=== PATIENT | male | born 1975 | race Caucasian/White ===

== ENCOUNTER → 2017-05-05 12:19 | Emergency (ER) | payer MEDICARE ==
[~2017-05-05 12:19] MED LIST: NS 0.9% 1000 ML* 2,000 ML IV ONE
[2017-05-05 14:10] LABS: Hematocrit 46 % (42-52); Hemoglobin 15.7 g/dl (14.0-18.0); Mean Corpuscular HGB Conc 34 g/dl (31-36); Mean Corpuscular Hemoglobin 30 pg (27-31); Mean Corpuscular Volume 87 fL (80-94); Mean Platelet Volume 9 um3 (7.4-10.4); Red Cell Distribution Width 13 % (10.5-15); White Blood Count 11.6 10^3/ul (3.5-10.8)
[2017-05-05 14:14] LABS: Urine Bilirubin Negative (Negative); Urine Glucose Negative (Negative); Urine Nitrite Negative (Negative)
[2017-05-05 14:23] LABS: Albumin 4.4 g/dL (3.2-5.2); BUN/Creatinine Ratio 13.8 (8-20); C Reactive Protein 14.52 mg/L (< 5.00); Calcium 9.5 mg/dL (8.6-10.3); EGFR African American 96.4 (>60); EGFR Non-African American 74.9 (>60); Globulin 2.6 g/dL (2-4); Potassium 4.1 mmol/L (3.5-5.0); Total Bilirubin 1.1 mg/dL (0.2-1.0)
--- NOTE | 2017-05-05 14:44 | RAD ---
Indication: Left flank pain. CT of the abdomen and pelvis was performed without IV or oral contrast administration. Coronal and sagittal reconstructed images were obtained. Lung bases demonstrate no pleural fluid, nodules or masses. Heart is of normal size without evidence of pericardial effusion. Liver is normal in size. No focal lesions or intrahepatic duct dilatation is noted. The gallbladder demonstrates no calcified gallstones. No pericholecystic fluid or wall thickening is identified. The pancreas demonstrates no mass or pancreatic duct dilatation. The spleen is normal in size. The common duct is not dilated. No adrenal lesions are noted. The kidneys demonstrate nonobstructing calculi in both kidneys. No hydronephrosis or hydroureter is noted. Aorta and inferior vena cava demonstrates no evidence of aneurysmal dilatation. No retroperitoneal adenopathy is noted. Small bowel demonstrates no abnormal dilatation. The colon is filled with stool. The appendix is visualized and is unremarkable. Urinary bladder is unremarkable. Prostate and seminal vesicles are unremarkable. The visualized bony structures are unremarkable. IMPRESSION: There are multiple small nonobstructing calculi in both kidneys. No hydronephrosis is noted in either kidney. No obstructive uropathy is noted.
[2017-05-05 15:21] VITALS: BP 128/75
--- NOTE | 2017-05-05 18:23 | ED ---
I, Oh,Aris, scribed for Jorge Alberto Obregon MD on 05/05/17 at 1300 . GI/ HPI - HPI Summary HPI Summary: This 42 y/o male presents to ED for left flank pain since this morning. No radiation of pain to groin area. Negative recent trauma. Ambulation makes pain worse. Deep breath does not make pain worse. PMHx includes kidney stone that was spontaneously passed as well as chronic back pain secondary to spinal injury while in . Chronic back pain is controlled with morphine. He is not on blood thinner. Pt reports that pain is similar to his prior kidney stone a year ago. - History of Current Complaint Chief Complaint: EDAbdPain Time Seen by Provider: 05/05/17 12:54 Stated Complaint: HIGH BP Hx Obtained From: Patient, Medical Records Onset/Duration: Started Hours Ago, Still Present Timing: Constant Pain Intensity: 8 Location of Pain: Flank - left Pain Characteristics: Sharp Associated Signs and Symptoms: Positive: Back Pain Aggravating Factor(s): Movement - ambulation Alleviating Factor(s): Nothing - Allergy/Home Medications Allergies/Adverse Reactions: Allergies Allergy/AdvReac Type Severity Reaction Status Date / Time Gabapentin Allergy Pain Verified 05/03/17 13:00 Bee Stings Allergy Severe Anaphylaxis Uncoded 10/15/16 13:40 PMH/Surg Hx/FS Hx/Imm Hx Endocrine/Hematology History: Denies: Hx Diabetes Cardiovascular History: Reports: Hx Hypercholesterolemia Denies: Hx Hypertension, Hx Pacemaker/ICD Comment Only: Other Cardiovascular Problems/Disorders - IN ED 10/09/16 rapid heart rate. [employer] 10/17/16 for Echo Respiratory History: Reports: Other Respiratory Problems/Disorders - History of apnea but patient refuses treatment. Denies: Hx Asthma GI History: Reports: Hx Gastroesophageal Reflux Disease, Hx Ulcer Musculoskeletal History: Reports: Hx Back Problems Denies: Hx Scoliosis Sensory History: Reports: Hx Contacts or Glasses - glasses, Hx Hearing Problem - Hearing Loss Denies: Hx Hearing Aid Opthamlomology History: Reports: Hx Contacts or Glasses - glasses Neurological History: Reports: Other Neuro Impairments/Disorders [facility], [facility] Denies: Hx Headaches Psychiatric History: Reports: Hx Depression Denies: Hx Panic Disorder - Surgical History Surgery Procedure, Year, and Place: T&A 1985. Endoscopy 1999, 2005 Infectious Disease History: No Infectious Disease History: Denies: Hx Clostridium Difficile, Hx Hepatitis, Hx Human Immunodeficiency Virus (HIV), Hx of Known/Suspected MRSA, Hx Shingles, Hx Tuberculosis, Hx Known/ Suspected VRE, Hx Known/Suspected VRSA, History Other Infectious Disease, Traveled Outside the [place] in Last 30 Days - Family History Known Family History: Positive: Other Family History: Father -- gastric ulcers. Positive for Graves dz - Social History Alcohol Use: Rare Alcohol Amount: wine Hx Substance Use: No Substance Use Type: Reports: None Hx Tobacco Use: No Smoking Status (MU): Never Smoked Tobacco Have You Smoked in the Last Year: No Review of Systems Negative: Fever Positive: flank pain - left flank Positive: Other - chronic back pain All Other Systems Reviewed And Are Negative: Yes Physical Exam - Summary Physical Exam Summary: The patient is well-nourished in moderate acute distress. The skin is warm and diaphoretic. HEENT: The head is normocephalic and atraumatic. The pupils are equal and reactive. The conjunctivae are clear and without drainage. Nares are patent and without drainage. Mouth reveals moist mucous membranes and the throat is without erythema and exudate. The external ears are intact. Hearing aid in place. Neck is supple with full range of motion and non-tender. There are no carotid bruits. There is no neck vein distension. Respiratory: Chest is non-tender. Lungs are clear to auscultation and breath sounds are symmetrical and equal. Cardiovascular: Hear is regular rate and rhythm. There is no murmur or rub auscultated. There is no peripheral edema and pulses are symmetrical and equal. Abdomen: The abdomen is soft and non-tender. There are normal bowel sounds heard in all four quadrants and there is no organomegaly palpated. Positive left CVA tenderness. Positive left straight leg raise. Musculoskeletal: There is no back pain noted. Extremities are non-tender with full range of motion. There is good capillary refill. There is no peripheral edema or calf tenderness elicited. Paraspinal muscle spasm on left lumbar region Neurological: Patient is alert and oriented to person, place and time. The patient has symmetrical motor strength in all four extremities. Cranial nerves are grossly intact. Deep tendon reflexes are symmetrical and equal in all four extremities. Psychiatric: The patient has an appropriate affect and does not exhibit any anxiety or depression. Triage Information Reviewed: Yes Vital Signs On Initial Exam: Initial Vitals Temp Pulse Resp BP Pulse Ox 98.3 F 103 20 135/90 100 05/05/17 12:40 05/05/17 12:40 05/05/17 12:40 05/05/17 12:40 05/05/17 12:40 Vital Signs Reviewed: Yes Diagnostics - Vital Signs Vital Signs Temp Pulse Resp BP Pulse Ox 05/05/17 12:43 97.2 F 99 20 135/90 100 05/05/17 12:40 98.3 F 103 20 135/90 100 - Laboratory Lab Results: Lab Results 05/05/17 05/05/17 05/05/17 Range/Units 12:55 12:55 12:55 WBC 11.6 H (3.5-10.8) 10^3/ul RBC 5.30 (4.0-5.4) 10^6/ul Hgb 15.7 (14.0-18.0) g/dl Hct 46 (42-52) % MCV 87 (80-94) fL MCH 30 (27-31) pg MCHC 34 (31-36) g/dl RDW 13 (10.5-15) % Plt Count 185 (150-450) 10^3/ul MPV 9 (7.4-10.4) um3 Neut % (Auto) 66.7 (38-83) % Lymph % (Auto) 21.7 L (25-47) % Mcculloch % (Auto) 9.3 H (1-9) % Eos % (Auto) 1.8 (0-6) % Baso % (Auto) 0.5 (0-2) % Absolute Neuts (auto) 7.8 H (1.5-7.7) 10^3/ul Absolute Lymphs (auto) 2.5 (1.0-4.8) 10^3/ul Absolute Monos (auto) 1.1 H (0-0.8) 10^3/ul Absolute Eos (auto) 0.2 (0-0.6) 10^3/ul Absolute Basos (auto) 0.1 (0-0.2) 10^3/ul Absolute Nucleated RBC 0.02 10^3/ul Nucleated RBC % 0.2 Sodium 138 (133-145) mmol/L Potassium 4.1 (3.5-5.0) mmol/L Chloride 102 (101-111) mmol/L Carbon Dioxide 28 (22-32) mmol/L Anion Gap 8 (2-11) mmol/L BUN 15 (6-24) mg/dL Creatinine 1.09 (0.67-1.17) mg/dL Est GFR ( Amer) 96.4 (>60) Est GFR (Non-Af Amer) 74.9 (>60) BUN/Creatinine Ratio 13.8 (8-20) Glucose 94 (70-100) mg/dL Calcium 9.5 (8.6-10.3) mg/dL Total Bilirubin 1.10 H (0.2-1.0) mg/dL AST 16 (13-39) U/L ALT 8 (7-52) U/L Alkaline Phosphatase 52 (34-104) U/L C-Reactive Protein 14.52 H (< 5.00) mg/L Total Protein 7.0 (6.4-8.9) g/dL Albumin 4.4 (3.2-5.2) g/dL Globulin 2.6 (2-4) g/dL Albumin/Globulin Ratio 1.7 (1-3) Lipase 28 (11.0-82.0) U/L Urine Color Yellow Urine Appearance Clear Urine pH 6.0 (5-9) Ur Specific Samson 1.014 (1.010-1.030) Urine Protein Negative (Negative) Urine Ketones Negative (Negative) Urine Blood Negative (Negative) Urine Nitrate Negative (Negative) Urine Bilirubin Negative (Negative) Urine Urobilinogen Negative (Negative) Ur Leukocyte Esterase Negative (Negative) Urine Glucose Negative (Negative) Result Diagrams: 05/05/17 12:55 05/05/17 12:55 Lab Statement: Any lab studies that have been ordered have been reviewed, and results considered in the medical decision making process. - CT Ab/P CT Interpretation: Positive (See Comments) - There are multiple small nonobstructing calculi in both kidneys. No hydronephrosis is noted in either kidney. No obstructive uropathy is noted. CT Interpretation Completed By: Samaria RAMOS Course/Dx - Course Assessment/Plan: This 42 y/o male presents to ED for acute onset of left flank pain since this morning. Ambulation makes the pain worse. Pt states the pain is similar to his prior bout of kidney stone 1 year ago, which was spontaenously passed. CT imaging results indicates bilat nonobstructing kidney stones. Blood work is wnl except elevated CRP of 14.52 and WBC of 11.6. UA is benign. Pt is discharged with outpatient f/u with Dr. Nash, PCP. - Diagnoses Differential Diagnoses - Male: Renal Calculi, Ureteral Calculi, Other - thoraic strain sprain Provider Diagnoses: Left flank pain, Kidney stones, Back pain Discharge - Discharge Plan Condition: Stable Disposition: HOME Patient Education Materials: Kidney Stones (ED), Flank Pain (ED) Referrals: Deon Nash MD [Primary Care Provider] - 2 Days The documentation as recorded by the Kristian blackburn Soohyun accurately reflects the service I personally performed and the decisions made by me, Jorge Alberto Obregon MD.
== END | disposition home or self-care (01) ==
LOC: ED 12:19
DX: N20.0 Calculus of kidney (principal); R10.84 Generalized abdominal pain; M54.9 Dorsalgia, unspecified
CPT/HCPCS: 36415; 74176; 80053; 81003; 83690; 85025; 86140; 99283

== ENCOUNTER 2017-05-27 13:11 | Emergency (ER) | payer MEDICARE, OTHER ==
[2017-05-27 13:20] VITALS: BP 120/72
--- NOTE | 2017-05-27 13:53 | UC ---
Lower Extremity/Ankle HPI - HPI Summary HPI Summary: Patient presents to after inverting ankle during a fall this morning. He notes to pain in the lateral ankle and great toe pain. He is unaware of the exact mechanism of injury. He presents with swelling. Denies color changes, temperature changes, numbness or tingling. Pulses +2 intact bilaterally. No evidence of compartment syndrome. Pain is in proportion to injury and is discretely located over area of concern. Denies other complaints. - History of Current Complaint Chief Complaint: UCUpperExtremity Stated Complaint: ANKLE INJURY Time Seen by Provider: 05/27/17 13:22 Hx Obtained From: Patient Onset/Duration: Gradual Onset Severity Initially: Moderate Severity Currently: Moderate Pain Intensity: 5 Pain Scale Used: 0-10 Numeric Aggravating Factor(s): Standing, Ambulation Alleviating Factor(s): Rest Able to Bear Weight: Yes - Risk Factors Gout Risk Factors: Negative DVT Risk Factors: Negative Septic Arthritis Risk Factor: Negative - Allergies/Home Medications Allergies/Adverse Reactions: Allergies Allergy/AdvReac Type Severity Reaction Status Date / Time Gabapentin Allergy Pain Verified 05/27/17 13:20 Bee Stings Allergy Severe Anaphylaxis Uncoded 05/27/17 13:20 PMH/Surg Hx/FS Hx/Imm Hx Previously Healthy: Yes - Surgical History Surgical History: Yes Surgery Procedure, Year, and Place: T&A 1985. Endoscopy 2005 - Family History Known Family History: Positive: None, Other Family History: Father -- gastric ulcers. Positive for Graves dz - Social History Occupation: Employed Full-time Lives: With Family Alcohol Use: Rare Alcohol Amount: wine Substance Use Type: None, Prescribed Substance Use Comment - Amount & Last Used: morphine Smoking Status (MU): Never Smoked Tobacco Have You Smoked in the Last Year: No Review of Systems Constitutional: Negative Skin: Negative Respiratory: Negative Cardiovascular: Negative Motor: Negative Neurovascular: Negative Neurological: Negative Psychological: Negative All Other Systems Reviewed And Are Negative: Yes Physical Exam Triage Information Reviewed: Yes Appearance: Well-Appearing, No Pain Distress, Well-Nourished Vital Signs: Initial Vital Signs Temp 97.6 F 05/27/17 13:17 Pulse 81 05/27/17 13:17 Resp 20 05/27/17 13:17 BP 120/72 05/27/17 13:17 Pulse Ox 98 05/27/17 13:17 Neck exam: Normal Neck: Positive: Supple, Nontender, No Lymphadenopathy Respiratory: Positive: Chest non-tender, Lungs clear Cardiovascular Exam: Normal Cardiovascular: Positive: RRR Musculoskeletal Exam: Normal Musculoskeletal: Positive: Strength Intact Psychological Exam: Normal Psychological: Positive: Normal Response To Family Skin Exam: Normal Lower Extremity Course/Dx - Course Course Of Treatment: Probable lateral malleolar fracture. Patient is ambulating with mild pain. Treatment options explained. Patient prefers air splint as opposed to posterior walking splint. Denies other complaints at this time and will follow up with Dr. Srinivasan next week. Return precautions given. - Differential Dx/Diagnosis Differential Diagnosis/HQI/PQRI: Contusion, Fracture (Closed), Fracture (Open), Sprain, Strain Provider Diagnoses: Lateral Malleolar Fracture Discharge - Discharge Plan Condition: Stable Disposition: HOME Patient Education Materials: Ankle Fracture (ED) Referrals: Deon Nash MD [Primary Care Provider] - Carson Srinivasan MD [Medical Doctor] - Additional Instructions: Ibuprofen 600mg three times daily with meals for pain. Follow up with orthopedic physician in 5-7 days. If numbness, tingling, decreased sensation, increased pain, temperature changes or pallor noted in toes, come back to ER immediately. Protect the area. For your comfort level, do not bear weight, pull or push until you can injury is somewhat healed. This may involve the need for immobilization or crutches for a period of time. Rest the involved area, but not too long. You may need to be off your injury for some time to allow for healing, however excessive immobilization of joints can lead to stiffness and delay healing time. Early mobilization is encouraged if it is pain-free. Ice. Not directly on the skin. Cover with a towel. Apply ice no more than 30 minutes at a time Compression: You may use and keep an chrissy wrap bandage over the injury to decrease swelling. Again, this should be limited and be taken off periodically to encourage early range of motion and mobilization.
--- NOTE | 2017-05-27 14:04 | RAD ---
HISTORY: Right ankle and foot trauma COMPARISONS: None VIEWS: 4, Frontal and lateral views of the right ankle and of the right foot FINDINGS: BONE DENSITY: Normal. BONES: There is a linear lucency suggestive of a probable nondisplaced fracture of lateral malleolus JOINTS: There is osteoarthritis of the first MTP joint ALIGNMENT: There is no dislocation. SOFT TISSUES: There is soft tissue swelling over lateral malleolus OTHER FINDINGS: None. IMPRESSION: 1. PROBABLE NONDISPLACED FRACTURE OF LATERAL MALLEOLUS. 2. OSTEOARTHRITIS OF THE FIRST MTP JOINT
== END 2017-05-27 14:23 | disposition home or self-care (01) ==
LOC: UCEAST 13:11
DX: S82.61XA Displaced fracture of lateral malleolus of right fibula, initial encounter for closed fracture (principal); W19.XXXA Unspecified fall, initial encounter; Y93.9 Activity, unspecified; Y92.9 Unspecified place or not applicable; Y99.9 Unspecified external cause status
CPT/HCPCS: 99211; G0463

== ENCOUNTER 2018-01-19 10:45 | Emergency (ER) | payer MEDICARE ==
[2018-01-19 10:58] VITALS: BP 142/95
--- NOTE | 2018-01-19 13:10 | UC ---
Nam Betancourt Stephanie, scribed for Calin Shaffer MD on 01/19/18 at 1157 . FLU HPI - HPI Summary HPI Summary: The pt is a 42 y/o M presenting to with c/o influenza-like symptoms that began on 01/05/18. Symptoms include CP, SOB, nasal congestion, sinus pressure, rhinorrhea with yellow/green sputum and cough. The pt denies current CP, fever, myalgia and chills. The pt was at the [facility] on Saturday and received cough pearls, albuterol treatment. No imaging was done. - History of Current Complaint Chief Complaint: UCGeneralIllness Stated Complaint: SORE THROAT RESP ISSUE COUGH Time Seen by Provider: 01/19/18 11:25 Hx Obtained From: Patient Onset/Duration: Gradual Onset, Lasting Weeks - 2, Still Present Severity Currently: Mild Pain Intensity: 2 Pain Scale Used: 0-10 Numeric Associated Signs & Symptoms: Positive: Nasal Congestion. Negative: Fever - Allergy/Home Medications Allergies/Adverse Reactions: Allergies Allergy/AdvReac Type Severity Reaction Status Date / Time MS Gabapentin [Gabapentin] Allergy Pain Verified 01/19/18 10:59 Bee Stings Allergy Severe Anaphylaxis Uncoded 01/19/18 10:59 PMH/Surg Hx/FS Hx/Imm Hx Cardiovascular History: Hypertension - Surgical History Surgical History: Yes Surgery Procedure, Year, and Place: T&A 1985. Endoscopy 1999, 2005. blood tranfusion form a bleeding ulcer 2005 - Family History Known Family History: Positive: Cardiac Disease, Diabetes, Other - cancer Family History: Father -- gastric ulcers. Positive for Graves dz - Social History Occupation: Disabled Lives: With Family Alcohol Use: Rare Alcohol Amount: wine Substance Use Type: None Substance Use Comment - Amount & Last Used: morphine Smoking Status (MU): Never Smoked Tobacco Have You Smoked in the Last Year: No Review of Systems Constitutional: Negative Skin: Negative Eyes: Negative ENT: Nasal Discharge, Sinus Congestion, Sinus Pain/Tenderness Respiratory: Shortness Of Breath, Cough Cardiovascular: Chest Pain Gastrointestinal: Negative Genitourinary: Negative Motor: Negative Neurovascular: Negative Musculoskeletal: Negative Neurological: Negative Psychological: Negative All Other Systems Reviewed And Are Negative: Yes Physical Exam Triage Information Reviewed: Yes Vital Signs: Initial Vital Signs Temp 97.8 F 01/19/18 10:52 Pulse 93 01/19/18 10:52 Resp 16 01/19/18 10:52 BP 142/95 01/19/18 10:52 Pulse Ox 99 01/19/18 10:52 Vital Signs Reviewed: Yes - Additional Comments General: well-appearing, no pain distress Skin: warm, color reflects adequate perfusion, dry Head: normal Eyes: EOMI, RACHEL ENT: rhinorrhea, posterior pharynx positive erythema Neck: supple, nontender Respiratory: CTA, breath sounds present Cardiovascular: RRR Abdomen: soft, nontender Bowel: present Musculoskeletal: normal, strength/ROM intact Neurological: normal, sensory/motor intact, A&O x3 Psychological: affect/mood appropriate Flu Course/Dx - Course Course Of Treatment: Medications reviewed. BP noted and advised to follow up with PCP. SX X 2 WEEKS - Differential Dx/Diagnosis Provider Diagnoses: SINUSITIS Discharge - Discharge Plan Condition: Stable Disposition: HOME Prescriptions: Amoxicillin/Clavulanate TAB* [Augmentin TAB 875*] 875 mg PO BID #10 tab Patient Education Materials: Sinusitis (ED) Referrals: Deon Nash MD [Primary Care Provider] - Additional Instructions: FOLLOW UP WITH YOUR DOCTOR. RETURN TO THE EMERGENCY DEPARTMENT FOR ANY WORSENING OF YOUR CONDITION OR QUESTIONS OR CONCERNS. Your blood pressure was elevated during todays visit; please follow up with your primary care provider within a week for further evaluation The documentation as recorded by the Nam blackburn Stephanie accurately reflects the service I personally performed and the decisions made by me, Calin Shaffer MD.
== END 2018-01-19 11:39 | disposition home or self-care (01) ==
LOC: UCEAST 10:45
DX: J32.9 Chronic sinusitis, unspecified (principal)
CPT/HCPCS: 87651; 99212; G0463

== ENCOUNTER 2019-06-13 20:39 | Emergency (ER) | payer BC, MEDICARE ==
[2019-06-13 20:52] VITALS: BP 113/71
[2019-06-13] MEDS ORDERED: Amoxicillin PO (*) 500 MG CAP PO ONE (21:09)
[2019-06-13] MEDS ORDERED: Amoxicillin PO (*) 250 MG CAP PO ONE (21:10)
--- NOTE | 2019-06-13 21:13 | UC ---
Ear Complaint HPI - HPI Summary HPI Summary: pt lost his hearing in his right ear about 2 days ago and now has ringing in it as well. he already uses a hearing aid in the left ear he has a history of a spinal injury and uses morphine for that - History of Current Complaint Chief Complaint: UCEar Stated Complaint: HEARING LOSS Time Seen by Provider: 06/13/19 20:43 Hx Obtained From: Patient Onset/Duration: Sudden Onset, Lasting Days Severity Initially: Moderate Severity Currently: Moderate Pain Intensity: 0 Associated Signs/Symptoms: Positive: Hearing Loss, URI Symptoms - Allergies/Home Medications Allergies/Adverse Reactions: Allergies Allergy/AdvReac Type Severity Reaction Status Date / Time gabapentin Allergy See Comment Verified 06/13/19 20:53 Bee Stings Allergy Severe Anaphylaxis Uncoded 01/19/18 10:59 Home Medications: Home Medications Atorvastatin* [Lipitor*] 20 mg PO DAILY 06/13/19 [History Confirmed 06/13/19] Morphine Sulfate [Ms Contin] 06/13/19 [History] Pantoprazole TAB * [Protonix TAB*] 06/13/19 [History] PMH/Surg Hx/FS Hx/Imm Hx Previously Healthy: Yes - Surgical History Surgical History: Yes Surgery Procedure, Year, and Place: T&A 1985. Endoscopy 1999, 2005. blood tranfusion form a bleeding ulcer 2005 - Family History Known Family History: Positive: None, Cardiac Disease, Diabetes, Other - cancer Family History: Father -- gastric ulcers. Positive for Graves dz - Social History Alcohol Use: Rare Alcohol Amount: wine Substance Use Type: None Substance Use Comment - Amount & Last Used: morphine Smoking Status (MU): Never Smoked Tobacco Have You Smoked in the Last Year: No Review of Systems All Other Systems Reviewed And Are Negative: Yes ENT: Positive: Ear Ache, Nasal Discharge, Sinus Congestion Respiratory: Positive: Cough Is Patient Immunocompromised?: No Physical Exam Triage Information Reviewed: Yes Appearance: Well-Appearing, Well-Nourished, Pain Distress Vital Signs: Initial Vital Signs Temp 98.8 F 06/13/19 20:45 Pulse 85 06/13/19 20:45 Resp 16 06/13/19 20:45 BP 113/71 06/13/19 20:45 Pulse Ox 96 06/13/19 20:45 Vital Signs Reviewed: Yes Eye Exam: Normal ENT: Positive: Pharyngeal erythema, Nasal congestion, TM bulging, TM dull, Sinus tenderness Dental Exam: Normal Neck exam: Normal Respiratory Exam: Normal Respiratory: Positive: Chest non-tender, Lungs clear, Normal breath sounds Cardiovascular Exam: Normal Cardiovascular: Positive: RRR Abdomen Description: Positive: Nontender, No Organomegaly, Soft Bowel Sounds: Positive: Present Musculoskeletal Exam: Normal Neurological Exam: Normal Psychological Exam: Normal Skin Exam: Normal Ear Complaint Course/Dx - Course Course Of Treatment: hx obtained, exam performed ,meds reviewed, treated for right otitis media - Differential Dx/Diagnosis Differential Diagnosis/HQI/PQRI: Cellulitis, Otitis Externa, Otitis Media, Perforated TM, URI Provider Diagnosis: Right otitis media Discharge - Sign-Out/Discharge Documenting (check all that apply): Patient Departure All imaging exams completed and their final reports reviewed: No Studies - Discharge Plan Condition: Stable Disposition: HOME Prescriptions: Amoxicillin PO (*) [Amoxicillin 875 MG (*)] 875 mg PO BID #19 tab Patient Education Materials: Ear Infection (ED) Referrals: Nayana Reardon MD [Primary Care Provider] - Additional Instructions: 1. take the medication as prescribed. 2. Follow up if not improving in the next 2 days - Billing Disposition and Condition Condition: STABLE Disposition: Home
== END 2019-06-13 21:17 | disposition home or self-care (01) ==
LOC: UCEAST 20:39
DX: H66.91 Otitis media, unspecified, right ear (principal); Z79.891 Long term (current) use of opiate analgesic
CPT/HCPCS: 99212; A9270-GY; G0463

== ENCOUNTER 2019-09-06 18:34 | Emergency (ER) | payer MEDICARE ==
--- OUTSIDE RECORDS SUMMARY | 2019-09-06 18:38 | XMS REPORT | Continuity of Care Document ---
:1975 External Reference #:[id number] Author Name Nayana Reardon MD (transmitted by agent of provider Sarah Smiley) Address [address], [address] [place] [id number] Care Team Providers Name Role Phone Yoandy Starks MD - Emergency Care Team Information Barn Manager [phone] Medicine Nayana Reardon MD - Internal Medicine Care Team Information Barn Manager [phone] Problems Active Problems Provider Date Major depressive disorder Deon Nash M.D.,FACP Onset: 06/17/2018 Note: possible PTSD Bacon's esophagus Deon Nash M.D.,FACP Onset: 08/13/2017 Note: followed at [place] [facility] Impaired fasting glycaemia Deon Nash M.D.,FACP Onset: 08/21/2018 Kidney stone Deon Nash M.D.,FACP Onset: 05/09/2017 Gastroduodenitis Deon Nash M.D.,FACP Onset: 11/14/2007 Pure hyperglyceridemia Deon Nash M.D.,FACP Onset: 12/23/2008 Displacement of lumbar intervertebral Deon Nash M.D.,FACP Onset: 12/2010 disc without myelopathy Note: w/ sciatica Pityriasis versicolor Deon Nash M.D.,FACP Onset: 06/30/2012 Restless legs Deon Nash M.D.,FACP Onset: 12/31/2012 Obstructive sleep apnea of adult Deon Nash M.D.,FACP Onset: 2013 Note: on CPAP Hearing loss Deon Nash M.D.,FACP Onset: 08/17/2015 Note: LEFT Non-alcoholic fatty liver Deon Nash M.D.,FACP Onset: 05/15/2017 Essential hypertension Deon Nash M.D.,FACP Onset: 08/13/2017 Social History Type Date Description Comments Sex Unknown Tobacco Use Start: Unknown Never Smoked Cigarettes ETOH Use 08/21/2018 Rarely consumes alcohol Recreational Drug Use Denies Drug Use Tobacco Use Start: Unknown Patient has never smoked Smoking Status Reviewed: 08/04/19 Patient has never smoked Exercise Type/Frequency Exercises sporadically Allergies, Adverse Reactions, Alerts Active Allergies Reaction Severity Comments Date Pseudoephedrine palpitations 08/29/2010 Gabapentin paradoxical rxn 06/30/2012 Bee% yellow jacket ; severe peripheral rxn 08/13/2017 Inactive Allergies NKDA 11/14/2007 Medications Active Medications SIG Qnty Indications Ordering Date Provider Lipitor take one tablet 90tabs Deon Bonilla 02/13/2019 10mg Tablets by mouth at Deon Nash,[facility] bedtime Lovaza take one capsule 60caps E78.1 Deon Bonilla 08/21/2018 1gm Capsules by mouth twice a Deon Nash,[facility] day Atenolol-Chlorthalidon 1 by mouth every 90tabs Deon Bonilla 08/21/2018 e morning Deon Nash,[facility] 50-25mg Tablets Flonase Allergy Relief 1 spray each 18.200ml J01. Deon Bonilla 2017 nostril twice a Deon Nash FACP 50mcg/Act Suspension day as needed Mucinex twice a day as 20tabs J01.90 Deon Bonilla 04/08/2018 600mg Tablets ER needed Deon Nash FACP 12HR Morphine Sulfate ER 1 by mouth twice 60tabs G89.4 Deon Bonilla 04/08/2018 15mg a day Deon Nash FACP Tablets ER Morphine Sulfate 1/2-1 three 45tabs G89.4 Deon Bonilla 04/08/2018 15mg times a day as Deon Nash,FACP Tablets needed Triamcinolone apply every day 30gm Deon Bonilla 02/14/2018 Acetonide as needed Deon Nash,FACP 0.1% Cream Pramipexole Take 1 Tablet By 90tabs Nayana Reardon MD 10/08/2017 Dihydrochloride Mouth In The 0.25mg Afternoon as Tablets Needed And Take 2 Tabs AT Bedtime as Needed Sucralfate Take 1 Tablet By 90tabs Deon Bonilla 08/13/2017 1gm Tablets Mouth 4 Times A Deon Nash,FACP Day as Needed For Dyspepsia Pantoprazole Sodium take 1 tablet by 90tabs K21.9 Deon Bonilla 08/13/2017 40mg mouth every Deon Nash,FACP Tablets DR morning before food Ondansetron dissolve one 30tabs Deon Bonilla 08/14/2016 4mg Tablets tablet orally Deon Nash,FACP Dispers every 8 hours as needed for nausea. Epipen 2-Luis Enrique sc as needed 2units Brian 04/03/2010 0.3mg/0.3ML Deon Dukes Solution Auto-Inject Lactaid 3 per day with Unknown Unsure Capsule dairy products Cymbalta 2 by mouth every Unknown 60mg Caps DR day Part Medications Administered in Office Medication SIG Qnty Indications Ordering Provider Date PPD Injection Nurse Visit C 03/21/2015 Immunizations CPT Code Status Date Vaccine Lot # [id number] Given 08/21/2018 Influenza Virus Vaccine, Quadrivalent, Split, [id number] Preservative Free [id number] Given 08/13/2017 Influenza Virus Vaccine, Quadrivalent, Split, [id number] Preservative Free [id number] Given 09/06/2016 Influ Virus Vaccine, Quadrivalent, Split Virus, [place] [id number] Given 08/17/2015 Influenza Virus Vaccine, Quadrivalent, Split, [id number] Preservative Free 19691 Given 09/14/2014 Influenza Virus Vaccine, Quadrivalent, Split, [id number] Preservative Free [id number] Given 01/28/2013 Tdap - Tetanus/Diptheria/Acellular Pertussis [id number] 81238 Given 11/08/2011 Influenza Virus 3Yrs & Over [id number] 44868 Given 09/10/2010 Influenza Virus 3Yrs & Over [id number] Given 10/16/2007 Influenza Virus 3Yrs & Over 44867 Given 10/16/2007 Influenza Virus 3Yrs & Over [id number] Vital Signs Date Vital Result Comment 08/04/2019 10:00am Height 65 inches 5'5" Weight 201.00 lb Heart Rate 86 /min BP Systolic Sitting 129 mmHg BP Diastolic Sitting 91 mmHg Body Temperature 98.5 F O2 % BldC Oximetry 97 % BMI (Body Mass Index) 33.4 kg/m2 04/24/2019 8:45am Height 65 inches 5'5" Weight 207.00 lb Heart Rate 60 /min BP Systolic Sitting 123 mmHg BP Diastolic Sitting 85 mmHg Body Temperature 97.2 F O2 % BldC Oximetry 95 % BMI (Body Mass Index) 34.4 kg/m2 Results Test Date Facility Test Result H/L Range Note CBC Auto 04/24/2019 [facility] White Blood 9.5 10^3/uL Normal 3.5-10.[address] [place] [address] [phone] Red Blood Count 4.97 10^6/uL Normal 4.18-5.48 Hemoglobin 14.8 g/dL Normal 14.0-18.0 Hematocrit 44 % Normal 42-52 Mean Corpuscular Volume 87 fL Normal 80-94 Mean Corpuscular Hemoglobin 30 pg Normal 27-31 Mean Corpuscular HGB Conc 34 g/dL Normal 31-36 Red Cell Distribution Width 14 % Normal 10.5-15 Platelet Count 251 10^3/uL Normal 150-450 Mean Platelet Volume 10.0 fL Normal 7.4-10.4 Abs Neutrophils 6.4 10^3/uL Normal 1.5-7.7 Abs Lymphocytes 1.9 10^3/uL Normal 1.0-4.8 Abs Monocytes 0.9 10^3/uL High 0-0.8 Abs Eosinophils 0.3 10^3/uL Normal 0-0.6 Abs Basophils 0.1 10^3/uL Normal 0-0.2 Abs Nucleated RBC 0.0 10^3/uL Granulocyte % 67.3 % Lymphocyte % 19.7 % Monocyte % 9.2 % Eosinophil % 3.2 % Basophil % 0.6 % Nucleated Red Blood Cells % 0.2 Laboratory 04/24/2019 [facility] Magnesium 2.1 mg/dL Normal 1.9-2.7 test finding [address] [place] [address] [phone] Drug Abuse 20 02/13/2019 [facility] Urine Negative [address] Amphetamine ng/[place] [address] [phone] Urine Barbiturates Negative ng/mL 2 Urine Benzodiazepines Negative ng/mL 3 Urine Cocaine Negative ng/mL 4 Urine Phencyclidine Negative ng/mL Cutoff: 25 Urine Tetrahydrocannabinol Negative ng/mL Cutoff: 50 5 Creatinine, Urine 136.2 mg/dL Specific [place] 1.014 pH 7.0 Oxidants Negative 6 Adulterants Comment Normal Codeine, Ur Not Detected ng/mL Cutoff: 25 7 Qjmerql-5-dabp-glucuronide, Ur Not Detected ng/mL 8 Morphine, Ur Not Detected ng/mL Cutoff: 25 9 Hhnhiwpe-4-sldx-glucuronide, U Present ng/mL Abnormal 10 6-monoacetylmorphine, Ur Not Detected ng/mL Cutoff: 25 11 Hydrocodone, Ur Not Detected ng/mL Cutoff: 25 12 Norhydrocodone, Ur Not Detected ng/mL Cutoff: 25 13 Dihydrocodeine, Ur Not Detected ng/mL Cutoff: 25 14 Hydromorphone, Ur Not Detected ng/mL Cutoff: 25 15 Wecsegnhtsnqz9bgfrmewpnjqqjju Not Detected ng/mL 16 Oxycodone, Ur Not Detected ng/mL Cutoff: 25 17 Noroxycodone, Ur Not Detected ng/mL Cutoff: 25 18 Oxymorphone, Ur Not Detected ng/mL Cutoff: 25 19 Efwfgfoxjcd-6-grmm-glucuronide Not Detected ng/mL 20 Noroxymorphone, Ur Not Detected ng/mL Cutoff: 25 21 Fentanyl, Ur Not Detected ng/mL Cutoff: 2 22 Norfentanyl, Ur Not Detected ng/mL Cutoff: 2 23 Meperidine, Ur Not Detected ng/mL Cutoff: 25 24 Normeperidine, Ur Not Detected ng/mL Cutoff: 25 25 Naloxone, Ur Not Detected ng/mL Cutoff: 25 26 Vekacyvv-8-pjfb-glucuronide, U Not Detected ng/mL 27 Methadone, Ur Not Detected ng/mL Cutoff: 25 28 Eddp, Ur Not Detected ng/mL Cutoff: 25 29 Propoxyphene, Ur Not Detected ng/mL Cutoff: 25 30 Norpropoxyphene, Ur Not Detected ng/mL Cutoff: 25 31 Tramadol, Ur Not Detected ng/mL Cutoff: 25 32 O-desmethyltramadol, Ur Not Detected ng/mL Cutoff: 25 33 Tapentadol, Ur Not Detected ng/mL Cutoff: 25 34 N-desmethyltapentadol, Ur Not Detected ng/mL Cutoff: 50 35 Rvvttyezug-lqyz-rafcukewxxi, U Not Detected ng/mL 36 Buprenorphine, Ur Not Detected ng/mL Cutoff: 5 37 Norbuprenorphine, Ur Not Detected ng/mL Cutoff: 5 38 Norbuprenorphine glucuronide Not Detected ng/mL Cutoff: 20 39 Opioid Interpretation See Comment 40 1 REFERENCE VALUE Cutoff: 500 2 REFERENCE VALUE Cutoff: 200 3 REFERENCE VALUE Cutoff: 100 4 REFERENCE VALUE Cutoff: 150 5 ADDITIONAL INFORMATION This report is intended for use in clinical monitoring or management of patients. It is not intended for use in employment-related testing. 6 REFERENCE VALUE Cutoff: 200 mg/L 7 Tylenol 3 8 Metabolite of codeine REFERENCE VALUE Cutoff: 100 9 Miracle Lovett, Contin; Also a minor metabolite (10%) of codeine and can be seen in low concentrations (<2,000 ng/mL) with poppy seed ingestion. 10 Metabolite of morphine REFERENCE VALUE Cutoff: 100 11 Metabolite of heroin 12 Lortab, [place], Vicodin; Also a very minor metabolite of codeine and impurity (<1%) of oxycodone. 13 Metabolite of hydrocodone 14 Metabolite of hydrocodone 15 Dilaudid, Exalgo; Also a metabolite of hydrocodone and a minor (<5%) metabolite of morphine. 16 Metabolite of hydromorphone REFERENCE VALUE Cutoff: 100 17 Endocet, Percocet, Oxycontin 18 Metabolite of oxycodone 19 Numorphan, Opana; Also a metabolite of oxycodone. 20 Metabolite of oxymorphone REFERENCE VALUE Cutoff: 100 21 Metabolite of oxymorphone 22 Actiq, Duragesic, [place] 23 Metabolite of fentanyl 24 Demerol 25 Metabolite of meperidine 26 Narcan 27 Metabolite of naloxone REFERENCE VALUE Cutoff: 100 28 Dolophine 29 Metabolite of methadone 30 Darvon, Darvocet 31 Metabolite of propoxyphene 32 Tradol, Ultram, Ultracet 33 Metabolite of tramadol 34 Nucynta 35 Metabolite of tapentadol 36 Metabolite of tapentadol REFERENCE VALUE Cutoff: 100 37 Buprenex, Suboxone 38 Metabolite of buprenorphine 39 Metabolite of buprenorphine 40 Test detected the presence of zlyzluqb-1-xpch-glucuronide (metabolite of morphine) only. Suspect use of morphine within the past three days. These results could also be suggestive of heroin use. Low levels of morphine can also be seen following poppy seed ingestion. ADDITIONAL INFORMATION This test was developed and its performance characteristics determined by [facility] in a manner consistent with CLIA requirements. This test has not been cleared or approved by the [place].S. Food and Drug Administration. Test Performed by: [facility] [address] [place] [address] Procedures Description No Information Available Medical Devices Description No Information Available Encounters Type Date Location Provider Dx Diagnosis Office Visit 04/24/2019 [facility] Internal Nayana Reardon MD G89.4 Chronic pain 9:00a Medicine - Ccmob syndrome I10 Essential (primary) hypertension F33.1 Major depressive disorder, recurrent, moderate M84.371S Stress fracture, right ankle, sequela G25.81 Restless legs syndrome Office Visit 02/13/2019 10:00a [facility] Internal Deon Bonilla M54.42 Lumbago with Patt Nash M.D.,FACP sciatica, left [address] side E78.1 Pure hyperglyceridemia I10 Essential (primary) hypertension Assessments Date Code Description Provider 08/04/2019 I10 Essential (primary) hypertension Nayana Reardon MD 08/04/2019 F33.1 Major depressive disorder, recurrent, Nayana Reardon MD moderate 08/04/2019 G89.4 Chronic pain syndrome Nayana Reardon MD 04/24/2019 G89.4 Chronic pain syndrome Nayana Reardon MD 04/24/2019 I10 Essential (primary) hypertension Nayana Reardon MD 04/24/2019 F33.1 Major depressive disorder, recurrent, Nayana Reardon MD moderate 04/24/2019 M84.371S Stress fracture, right ankle, sequela Nayana Reardon MD 04/24/2019 G25.81 Restless legs syndrome Nayana Reardon MD 02/13/2019 M54.42 Lumbago with sciatica, left side Deon Nash M.D., [facility] 02/13/2019 E78.1 Pure hyperglyceridemia Deon Nash M.D.,[facility] 02/13/2019 I10 Essential (primary) hypertension Deon Nash M.D.,[facility] Plan of Treatment 08/04/2019 - Nayana Reardon MDI10 Essential (primary) hypertensionComments:Your blood pressure is fine. Continue the same azuxobukqpK73.1 Major depressive disorder, recurrent, moderateComments:Please make an appointment to see tvbgpopxevL48.4 Chronic pain syndrome Functional Status Description No Information Available Mental Status Description No Information Available Referrals Description No Information Available
[2019-09-06] MEDS ORDERED: Albuterol 2.5 MG/3 ML NEB.SOL* (0.083%) INH ONE (19:27)
--- NOTE | 2019-09-06 19:41 | ED ---
Shortness of Breath - HPI Summary HPI Summary: 44 yo Wm p/w cough, nonproductive with increasing SOB x3 weeks, [facility] so he came [facility] . - History of Current Complaint Chief Complaint: UCRespiratory Time Seen by Provider: 09/06/19 19:05 Hx Obtained From: Patient Onset/Duration: Lasting Weeks Current Severity: Moderate Dyspnea At: Rest Aggravating Factors: Deep Breaths Associated Signs & Symptoms: Cough (Nonproductive), Chest Pain w/Cough, Fever, Chills Related History: Obesity - Allergy/Home Medications Allergies/Adverse Reactions: Allergies Allergy/AdvReac Type Severity Reaction Status Date / Time gabapentin Allergy See Comment Verified 09/06/19 19:05 Bee Stings Allergy Severe Anaphylaxis Uncoded 09/06/19 19:05 Home Medications: Home Medications DULoxetine DR CAP* [Cymbalta CAP*] 09/06/19 [History] buPROPion TAB* [Wellbutrin TAB*] 09/06/19 [History Confirmed 09/06/19] PMH/Surg Hx/FS Hx/Imm Hx Previously Healthy: Yes Endocrine/Hematology History: Denies: Hx Diabetes, Hx Thyroid Disease Cardiovascular History: Reports: Hx Hypercholesterolemia, Hx Hypertension Denies: Hx Pacemaker/ICD Comment Only: Other Cardiovascular Problems/Disorders - IN ED 10/09/16 rapid heart rate. 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 Denies: Hx Asthma GI History: Reports: Hx Gastroesophageal Reflux Disease, Hx Ulcer Musculoskeletal History: Reports: Hx Back Problems Denies: Hx Scoliosis Sensory History: Reports: Hx Contacts or Glasses - glasses, Hx Hearing Problem - Hearing Loss Denies: Hx Hearing Aid Opthamlomology History: Reports: Hx Contacts or Glasses - glasses Neurological History: Reports: Other Neuro Impairments/Disorders - [facility], [facility] Denies: Hx Headaches Psychiatric History: Reports: Hx Depression Denies: Hx Panic Disorder - Surgical History Surgery Procedure, Year, and Place: T&A 1985. Endoscopy 1999, 2005. blood tranfusion form a bleeding ulcer 2005 Infectious Disease History: No Infectious Disease History: Denies: Hx Clostridium Difficile, Hx Hepatitis, Hx Human Immunodeficiency Virus (HIV), Hx of Known/Suspected MRSA, Hx Shingles, Hx Tuberculosis, Hx Known/ Suspected VRE, Hx Known/Suspected VRSA, History Other Infectious Disease, Traveled Outside the [place] in Last 30 Days - Family History Known Family History: Positive: None, Cardiac Disease, Diabetes, Other - cancer Family History: Father -- gastric ulcers. Positive for Graves dz - Social History Alcohol Use: None Alcohol Amount: wine Hx Substance Use: No Substance Use Type: Reports: None Substance Use Comment - Amount & Last Used: morphine Hx Tobacco Use: No Smoking Status (MU): Never Smoked Tobacco Have You Smoked in the Last Year: No Review of Systems Constitutional: Negative Eyes: Negative ENT: Negative Cardiovascular: Negative Positive: Shortness Of Breath, Cough Gastrointestinal: Negative Musculoskeletal: Negative Skin: Negative Neurological: Negative Psychological: Normal All Other Systems Reviewed And Are Negative: Yes Physical Exam - Summary Physical Exam Summary: Vital Signs Reviewed: Yes Eye Exam: Normal Eyes: Positive: Conjunctiva Clear ENT: Positive: Normal ENT inspection Neck: Positive: Supple Respiratory Exam: Normal, decreased BS B/L, no wheezes Respiratory: Positive: Lungs clear Cardiovascular Exam: Normal Cardiovascular: Positive: RRR, S1 S2 Abdomen: NT/ND Musculoskeletal Exam: Normal Neurological Exam: Normal Psychological Exam: Normal Skin Exam: Normal Triage Information Reviewed: No Vital Signs On Initial Exam: Initial Vitals Temp Pulse Resp BP Pulse Ox 37.2 C 62 16 125/84 100 09/06/19 19:00 09/06/19 19:00 09/06/19 19:00 09/06/19 19:00 09/06/19 19:00 Appearance: Positive: Ill-Appearing Skin: Positive: Warm Diagnostics - Vital Signs Vital Signs Temp Pulse Resp BP Pulse Ox 09/06/19 19:00 37.2 C 62 16 125/84 100 - Laboratory Lab Statement: Any lab studies that have been ordered have been reviewed, and results considered in the medical decision making process. Course/Dx - Course Assessment/Plan: CXR reveals Bibasilar infiltrates, pt had exertional SOB, 94% on RA when walking per nurse while, but 100% O2 sat at rest. Pt improved greatly from albuterol nebs, O2, IV Rocephin 1g, 1L NS. - Diagnoses Provider Diagnoses: SOB (shortness of breath), PNA (pneumonia) Discharge ED - Sign-Out/Discharge Documenting (check all that apply): Patient Departure All imaging exams completed and their final reports reviewed: Yes - Discharge Plan Condition: Stable Disposition: HOME Prescriptions: Cefuroxime 500 MG(NF) 500 mg PO BID 7 Days #1 tab predniSONE TAB* [Deltasone 10 MG TAB*] 10 mg PO DAILY 5 Days #5 tab Patient Education Materials: Pneumonia (ED) Referrals: Nayana Reardon MD [Primary Care Provider] - Additional Instructions: IF SHORTNESS OF BREATH WORSENS, PLEASE GO TO ER FOR FURTHER MONITORING AND IV ABX - Billing Disposition and Condition Condition: STABLE Disposition: Home
[2019-09-06] MEDS ORDERED: cefTRIAXone VIAL(*) 1,000 MG VIAL IVPB ONE (20:00)
[2019-09-06] MEDS ORDERED: NS 0.9% 1000 ML** 1,000 ML IV ONE (20:02)
[2019-09-06] MEDS ORDERED: Albuterol HFA INHALER* 8 gm MDI INH ONE (20:12)
[2019-09-06 21:32] VITALS: BP 121/90
== END 2019-09-06 21:55 | disposition home or self-care (01) ==
LOC: UCEAST 18:34
DX: J18.9 Pneumonia, unspecified organism (principal); R06.02 Shortness of breath; H91.90 Unspecified hearing loss, unspecified ear; I10 Essential (primary) hypertension; E78.00 Pure hypercholesterolemia, unspecified; K21.9 Gastro-esophageal reflux disease without esophagitis; Z91.030 Bee allergy status; Z88.8 Allergy status to other drugs, medicaments and biological substances; Z79.899 Other long term (current) drug therapy
CPT/HCPCS: 71046; 93005; 96360; 96365; 99213; A9270-GY; G0463; J0696

== ENCOUNTER 2019-09-18 14:17 | Emergency (ER) | payer MEDICARE ==
--- OUTSIDE RECORDS SUMMARY | 2019-09-18 14:24 | XMS REPORT | Continuity of Care Document ---
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 [phone] Medicine Nayana Reardon MD - Internal Medicine Care Team Information Oil Lease Broker [phone] Problems Active Problems Provider Date Major depressive disorder Deon Nash M.D.,FACP Onset: 06/17/2018 Note: possible PTSD Bacon's esophagus Deon Nash M.D.,FACP Onset: 08/13/2017 Note: followed [place] [facility] Impaired fasting glycaemia Deon Nash M.D.,FACP [...] Patient has never smoked Smoking Status Reviewed: 09/10/19 Patient has never smoked Exercise Type/Frequency Exercises sporadically Allergies, Adverse Reactions, Alerts Active Allergies Reaction Severity Comments Date Pseudoephedrine palpitations 08/29/2010 Gabapentin paradoxical rxn 06/30/2012 Bee% yellow jacket ; severe peripheral rxn 08/13/2017 Inactive Allergies NKDA 11/14/2007 Medications Active Medications SIG Qnty Indications Ordering Date Provider Azithromycin take 2 tablets 6tabs J18.8 Nayana Reardon, 250mg Tablets today; then one MD [place] tablet daily Methylprednisolone take as 21units J18.8 Nayana Reardon, 4mg TBPK instructed on the MD No tapia Lipitor take one tablet 90tabs Deon Bonilla 10mg Tablets by mouth at [place], 9 bedtime M.D.,FACP Lovaza take one capsule 60caps E78.1 Deon Bonilla 1gm Capsules by mouth twice a [place], 8 day M.D.,FACP Atenolol-Chlorthalidone 1 by mouth every 90tabs Deon Bonilla morning [place], 8 50-25mg Tablets M.D.,FACP Flonase Allergy Relief 1 spray each 18.200ml J01. Deon Bonilla nostril twice a [place], 8 50mcg/Act Suspension day as needed M.D.,FACP Mucinex twice a day as 20tabs J01. Deon Bonilla 600mg Tablets ER 12HR needed [place], 8 M.D.,FACP Triamcinolone Acetonide apply every day 30gm Deon Bonilla 0.1% as needed [place], 8 Cream M.D.,FACP Pramipexole Take 1 Tablet By 90tabs Nayana Reardon, Dihydrochloride Mouth In The MD 7 0.25mg Afternoon as Tablets Needed And Take 2 Tabs AT Bedtime as Needed Pantoprazole Sodium take 1 tablet by 90tabs K21.9 Deon Bonilla 40mg mouth every [place], [address] morning before M.D.,FACP food Sucralfate Take 1 Tablet By 90tabs Deon Bonilla 1gm Tablets Mouth 4 Times A [place], 7 Day as Needed For M.D.,FACP Dyspepsia Ondansetron dissolve one 30tabs Deon Bonilla 4mg Tablets tablet orally [place], 6 Dispers every 8 hours as M.D.,FACP needed for nausea. Epipen 2-Luis Enrique sc as needed 2unleann Torres 0.3mg/0.3ML [place], 0 Solution Auto-Inject M.D. Lactaid 3 per day with Unknown Unsure Capsule dairy products 0 Cymbalta 2 by mouth every Unknown 60mg Caps DR Part day 0 Cefuroxime Axetil 2 tablets daily Unknown 500mg 0 Tablets Prednisone 1 tab daily Unknown 10mg Tablets 0 Ventolin HFA 1 to 2 Unknown 108(90Base) inhalations every 0 mcg/Act Aerosol 4 hours as needed Medications Administered in Office Medication SIG Qnty Indications Ordering Provider Date PPD Injection Nurse Visit C 03/21/2015 Immunizations CPT Code Status Date Vaccine Lot # [id number] Given 08/21/2018 Influenza Virus Vaccine, Quadrivalent, Split, [id number] Preservative Free 89903 Given 08/13/2017 Influenza Virus Vaccine, Quadrivalent, Split, [id number] Preservative Free 63701 Given 09/06/2016 Influ Virus Vaccine, Quadrivalent, Split Virus, [place] [address] Given 08/17/2015 Influenza Virus Vaccine, Quadrivalent, Split, [id number] Preservative Free 81058 Given 09/14/2014 Influenza Virus Vaccine, Quadrivalent, Split, [id number] Preservative Free 66614 Given 01/28/2013 Tdap - Tetanus/Diptheria/Acellular Pertussis [id number] 10813 Given 11/08/2011 Influenza Virus 3Yrs & Over [id number] 86464 Given 09/10/2010 Influenza Virus 3Yrs & Over 84426 Given 10/16/2007 Influenza Virus 3Yrs & Over 54307 Given 10/16/2007 Influenza Virus 3Yrs & Over [id number] Vital Signs Date Vital Result Comment 09/10/2019 2:18pm Height 65 inches 5'5" Weight 197.00 lb Heart Rate 65 /min BP Systolic Sitting 121 mmHg BP Diastolic Sitting 77 mmHg Body Temperature 98.2 F O2 % BldC Oximetry 97 % BMI (Body Mass Index) 32.8 kg/m2 08/04/2019 10:00am Height 65 inches 5'5" Weight 201.00 lb Heart Rate 86 /min BP Systolic Sitting 129 mmHg BP Diastolic Sitting 91 mmHg Body Temperature 98.5 F O2 % BldC Oximetry 97 % BMI (Body Mass Index) 33.4 kg/m2 Results Test Date Facility Test Result H/L Range Note Drug Abuse 08/04/2019 [facility] Urine Amphetamine Negative ng/ mL 1 [address] [place] [id number] [phone] Urine Barbiturates Negative ng/mL 2 Urine Benzodiazepines Negative ng/mL 3 Urine Cocaine Negative ng/mL 4 Urine Phencyclidine Negative ng/mL Cutoff: 25 Urine Tetrahydrocannabinol Negative ng/mL Cutoff: 50 5 Creatinine, Urine 172.0 mg/dL Specific [place] 1.010 pH 7.5 Oxidants Negative 6 Adulterants Comment Normal Codeine, Ur Not Detected ng/mL Cutoff: 25 7 Ycexhzo-8-skgg-glucuronide, Ur Not Detected ng/mL 8 Morphine, Ur Not Detected ng/mL Cutoff: 25 9 Axmtfhpa-3-hzge-glucuronide, U Not Detected ng/mL 10 6-monoacetylmorphine, Ur Not Detected ng/mL Cutoff: 25 11 Hydrocodone, Ur Not Detected ng/mL Cutoff: 25 12 Norhydrocodone, Ur Not Detected ng/mL Cutoff: 25 13 Dihydrocodeine, Ur Not Detected ng/mL Cutoff: 25 14 Hydromorphone, Ur Not Detected ng/mL Cutoff: 25 15 Eprsnyvvktwcc6cnxmcaueckjdqhs Not Detected ng/mL 16 Oxycodone, Ur Not Detected ng/mL Cutoff: 25 17 Noroxycodone, Ur Not Detected ng/mL Cutoff: 25 18 Oxymorphone, Ur Not Detected ng/mL Cutoff: 25 19 Wrqfhjzzjuc-1-htku-glucuronide Not Detected ng/mL 20 Noroxymorphone, Ur Not Detected ng/mL Cutoff: 25 21 Fentanyl, Ur Not Detected ng/mL Cutoff: 2 22 Norfentanyl, Ur Not Detected ng/mL Cutoff: 2 23 Meperidine, Ur Not Detected ng/mL Cutoff: 25 24 Normeperidine, Ur Not Detected ng/mL Cutoff: 25 25 Naloxone, Ur Not Detected ng/mL Cutoff: 25 26 Kypwcqxn-7-ubou-glucuronide, U Not Detected ng/mL 27 Methadone, Ur [...] Ur Not Detected ng/mL Cutoff: 50 35 Jjuizrbshc-yhxi-nambpmvczgn, U Not Detected ng/mL 36 Buprenorphine, Ur Not Detected ng/mL Cutoff: 5 37 Norbuprenorphine, Ur Not Detected ng/mL Cutoff: 5 38 Norbuprenorphine glucuronide Not Detected ng/mL Cutoff: 20 39 Opioid Interpretation See Comment 40 CBC Auto 04/24/2019 [facility] White Blood 9.5 10^3/uL Normal 3.5-10.[address] [place] [address] [phone] Red Blood Count 4.97 10^6/uL Normal 4.18-5.48 [...] Nucleated Red Blood Cells % 0.2 Laboratory test 04/24/2019 [facility] Magnesium 2.1 mg/dL Normal 1.9-2.[address] [place] [phone] 2 REFERENCE VALUE Cutoff: 500 2 REFERENCE VALUE Cutoff: 200 3 REFERENCE VALUE Cutoff: 100 4 REFERENCE VALUE Cutoff: 150 5 ADDITIONAL INFORMATION This report is intended for use in clinical monitoring or management of patients. It is not intended for use in employment-related testing. Test Performed by: [facility] [address] [place] [address] Exotic Dancer: Calin Contreras M.D. Ph.D.; [facility]# [id number] REFERENCE VALUE Cutoff: 200 mg/L 7 Tylenol 3 8 Metabolite of codeine REFERENCE VALUE Cutoff: 100 9 Miracle Lovett, [place] Contin; Also a minor metabolite (10%) of codeine and can be seen in low concentrations (<2,000 ng/mL) with poppy seed ingestion. 10 Metabolite of morphine REFERENCE VALUE Cutoff: 100 11 Metabolite of heroin 12 Lortab, [place], Vicodin; Also a very minor metabolite of [...] of buprenorphine 39 Metabolite of buprenorphine 40 No opioids were detected. The absence of expected drug(s) and/or drug metabolite(s) may indicate non-compliance, altered pharmacokinetics, inappropriate timing of specimen collection relative to drug administration, diluted/adulterated urine, or limitations of testing. ADDITIONAL INFORMATION This test was developed and its performance characteristics determined by [facility] in a manner consistent with CLIA requirements. This test has not been cleared or approved by the U.S. Food and Drug Administration. Procedures Description No Information Available Medical Devices Description No Information Available Encounters Type Date Location Provider Dx Diagnosis Office Visit 08/04/2019 [facility] Internal Nayana Reardon MD I10 Essential ( primary) 10:20a Medicine - Ccmob hypertension F33.1 Major depressive disorder, recurrent, moderate G89.4 Chronic pain syndrome Office Visit 04/24/2019 9:00a [facility] Internal Nayana Reardon MD G89.4 Chronic pain Medicine - Ccmob syndrome I10 Essential (primary) hypertension F33.1 Major depressive disorder, recurrent, moderate M84.371S Stress fracture, right ankle, sequela G25.81 Restless legs syndrome Assessments Date Code Description Provider 09/10/2019 J18.8 Other pneumonia, unspecified organism Nayana Reardon MD 08/04/2019 I10 Essential (primary) hypertension Nayana Reardon MD 08/04/2019 F33.1 Major depressive disorder, recurrent, moderate Nayana Reardon MD 08/04/2019 G89.4 Chronic pain syndrome Nayana Reardon MD 04/24/2019 G89.4 Chronic pain syndrome Nayana Reardon MD 04/24/2019 I10 Essential (primary) hypertension Nayana Reardon MD 04/24/2019 F33.1 Major depressive disorder, recurrent, moderate Nayana Reardon MD 04/24/2019 M84.371S Stress fracture, right ankle, sequela Nayana Reardon MD 04/24/2019 G25.81 Restless legs syndrome Nayana Reardon MD Plan of Treatment Future Appointment(s):09/22/2019 8:20 am - Nay[facility]ardon [facility] - Nayana Reardon MDJ18.8 Other pneumonia, unspecified organismNew Medication:Azithromycin 250 mg - take 2 tablets today; then one tablet dailyMethylprednisolone 4 mg - take as instructed on the pakComments: Stop deltasone; stop cefuroximeI am giving you a new antibiotic and a different script for steroidFollow up:F/U 1 week Functional Status Description No Information Available Mental Status Description No Information Available Referrals Description No Information Available
[2019-09-18 14:36] VITALS: BP 106/68
--- NOTE | 2019-09-18 15:01 | UC ---
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 helped " a little bit". then saw PCP on 09/10, given zithromax and medrol dosepak. felt "a little bit" better. [facility] told to f/u with his PCP as needed. Now in the past few days, when he talks he feels like he has to cough, which makes him feel SOB. he denies any SOB when walking or when he is not talking. [facility], and was told to come here for evaluation HPI - c/o cough, shortness of breath (air hunger) with speaking, progressively worse since early to mid Aug 2019. Had fever x 1 day approx Sep, prompting visit to [facility] 09/10. Started abx / prednisone, better but then worse again. Seen by Dr. Reardon, started azithromycin and medrol dose pack. Sx improved but over the last week, he is feeling worse, prompting visit here. No current or recent fever / chills. Cough nonprod. No cp / palpitations. Denies GI issues. + hx lower spinal injury with dysesthesia but not recent change. Mild sore throat apprx 4 days ago, gone now. - History of Current Complaint Chief Complaint: UCGeneralIllness Stated Complaint: COUGH SOB Time Seen by Provider: 09/18/19 14:59 Hx Obtained From: Patient Pain Intensity: 0 - Allergy/Home Medications Allergies/Adverse Reactions: Allergies Allergy/AdvReac Type Severity Reaction Status Date / Time gabapentin Allergy See Comment Verified 09/18/19 14:36 Bee Stings Allergy Severe Anaphylaxis Uncoded 09/18/19 14:36 Home Medications: Home Medications Albuterol HFA INHALER* [Ventolin HFA Inhaler*] 1 puff INH Q4H PRN 09/18/19 [ History Confirmed 09/18/19] PMH/Surg Hx/FS Hx/Imm Hx Previously Healthy: No - see hpi - Surgical History Surgical History: Yes Surgery Procedure, Year, and Place: T&A 1985 - Family History Known Family History: Positive: None, Cardiac Disease, Diabetes, Other - cancer Family History: Father -- gastric ulcers. Positive for Graves dz - Social History Alcohol Use: None Alcohol Amount: wine Substance Use Type: None Substance Use Comment - Amount & Last Used: morphine Smoking Status (MU): Never Smoked Tobacco Have You Smoked in the Last Year: No Review of Systems All Other Systems Reviewed And Are Negative: Yes Constitutional: Positive: Other - see hpi Skin: Positive: Negative Eyes: Positive: Negative ENT: Positive: Other - see hpi Respiratory: Positive: Other Cardiovascular: Positive: Other - see hpi Gastrointestinal: Positive: Other - see hpi Genitourinary: Positive: Other - see hpi Motor: Positive: Other - see hpi Neurovascular: Positive: Other - see hpi Musculoskeletal: Positive: Other: - see hpi Neurological: Positive: Other - see hpi Psychological: Positive: Negative Is Patient Immunocompromised?: No Physical Exam Triage Information Reviewed: Yes Appearance: Well-Appearing, Well-Nourished Vital Signs: Initial Vital Signs Temp 98.5 F 09/18/19 14:24 Pulse 66 09/18/19 14:24 Resp 20 09/18/19 14:24 BP 106/68 09/18/19 14:24 Pulse Ox 99 09/18/19 14:24 Vital Signs Reviewed: Yes Eye Exam: Normal ENT Exam: Normal Neck exam: Normal Neck: Positive: Supple Respiratory Exam: Normal Respiratory: Positive: Chest non-tender, Lungs clear, Normal breath sounds, No respiratory distress, No accessory muscle use Cardiovascular Exam: Normal Cardiovascular: Positive: RRR, No Murmur, Pulses Normal, Brisk Capillary Refill Abdominal Exam: Normal Abdomen Description: Positive: Nontender Musculoskeletal Exam: Normal Musculoskeletal: Positive: Strength Intact, ROM Intact Neurological Exam: Other - no new c/o, grossly nonfocal Psychological Exam: Normal - conversing easily and appropriately Skin Exam: Normal - no visible or reported rash, nondiaphoretic Course/Dx - Course Course Of Treatment: Reviewed cxr report with pt. Reviewed cxr from 09/06/19. VS ok. However, chronic persistent sx are concerning. Will order blood work, f/u PCP early this week. EKG sr at 63 bpm. early repol noted, c/w 2015, similar finding. Discussed with pt and friend, who is accompanying him today. Will start low dose prednisone d/t recent improvement with such. Do not feel abx are indicated. Likely post viral, but further w/u indicated. Addendum - upon near conclusion of exam - I asked pt if he has sleep apnea, he does, but doesn't use machine. Has machine. Will clean and start using. Maybe pulm f/u indicated in addition to PCP. Questions as posed answered to the best of my ability. - Diagnoses Provider Diagnosis: Dyspnea, Cough Discharge ED - Sign-Out/Discharge Documenting (check all that apply): Patient Departure All imaging exams completed and their final reports reviewed: Yes - Discharge Plan Condition: Stable Disposition: HOME Prescriptions: Benzonatate CAP* [Tessalon 100 MG CAP*] 100 mg PO TID PRN #30 cap PRN Reason: Cough predniSONE TAB* [Deltasone TAB*] 5 mg PO DAILY #15 tab Patient Education Materials: Chronic Cough (ED), Dyspnea (ED) Referrals: Nayana Reardon MD [Primary Care Provider] - Additional Instructions: Follow up Dr. Reardon next week. Please go to the Emergency Dept for worse or new problems. Please clean and use CPAP machine. - Billing Disposition and Condition Condition: STABLE Disposition: Home
[2019-09-18 19:34] LABS: ABS Basophils 0.1 10^3/ul (0-0.2); ABS Lymphocytes 1.3 10^3/ul (1.0-4.8); ABS Monocytes 0.9 10^3/ul (0-0.8); ABS Neutrophils 7.9 10^3/ul (1.5-7.7); Eosinophil % 0.3 %; Hematocrit 48 % (42-52); Hemoglobin 15.9 g/dL (14.0-18.0); Lymphocyte % 12.6 %; Mean Corpuscular HGB Conc 33 g/dL (31-36); Mean Corpuscular Hemoglobin 29 pg (27-31); Mean Corpuscular Volume 87 fL (80-94); Mean Platelet Volume 9.7 fL (7.4-10.4); Nucleated Red Blood Cells % 0.1; Platelet Count 293 10^3/uL (150-450); Red Blood Count 5.53 10^6 /uL (4.18-5.48); Red Cell Distribution Width 14 % (10-15); White Blood Count 10.2 10^3/uL (3.5-10.8)
[2019-09-18 21:51] LABS: Erythrocyte Sed Rate 2 mm/Hr (0-14)
[2019-09-19 10:46] LABS: C Reactive Protein 2.29 mg/L (<8.01); Calcium 9.7 mg/dL (8.6-10.3); EGFR African American 106.5 (>60); Potassium 4.9 mmol/L (3.5-5.0)
== END 2019-09-18 16:30 | disposition home or self-care (01) ==
LOC: UCEAST 14:17
DX: R06.00 Dyspnea, unspecified (principal); R05 Cough; R06.02 Shortness of breath; Z88.8 Allergy status to other drugs, medicaments and biological substances; Z91.030 Bee allergy status
CPT/HCPCS: 36415; 71046; 80048; 83880; 85025; 85652; 86140; 93005; 99212; G0463

== ENCOUNTER 2022-02-09 14:31 | Inpatient (IN) ==
[2022-02-09] MEDS: IMMUNE GLOB IV SCH (19:19)
[2022-02-09] MEDS: PRIVIGEN IV SCH (19:19)
[2022-02-09] MEDS: [UNRECOGNIZED DRUG - OTHER] IV SCH (19:19)
[2022-02-10 06:52] LABS: Calcium 8.9 mg/dL (8.6-10.3); Magnesium 1.9 mg/dL (1.9-2.7); eGFR CKD-EPI 86.2 (>60)
[2022-02-10 07:14] LABS: Folate 10.51 ng/mL (5.90-24.80)
[2022-02-10] MEDS: buPROPion SR 100 mg TAB.SR PO SCH (11:26)
[2022-02-10 15:34] LABS: Body Fluid Source Cerebral Spinal
[2022-02-10 15:35] LABS: Body Fluid Appearance Clear; Body Fluid Color Colorless
[2022-02-10 15:36] LABS: CSF Tube # 2
[2022-02-10 15:50] LABS: CSF Glucose 70 mg/dL (40-70)
[2022-02-10 16:19] LABS: Body Fluid WBC 3 /mcL
[2022-02-10 16:23] LABS: Body Fluid Mono 26 %; Body Fluid Total Cells Counted 97
[2022-02-10] MEDS: IMMUNE GLOB IV SCH (17:53)
[2022-02-10] MEDS: [UNRECOGNIZED DRUG - OTHER] IV SCH (17:53)
[2022-02-10] MEDS: PRIVIGEN IV SCH (17:53)
[2022-02-11 05:33] LABS: ABS Basophils 0.1 10^3/ul (0-0.2); ABS Eosinophils 0.3 10^3/ul (0-0.6); ABS Lymphocytes 1.6 10^3/ul (1.0-4.8); ABS Monocytes 0.8 10^3/ul (0-0.8); ABS Neutrophils 3.9 10^3/ul (1.5-7.7); Eosinophil % 4.1 %; Hematocrit 39 % (42-52); Hemoglobin 13.8 g/dL (14.0-18.0); Lymphocyte % 24.2 %; Mean Corpuscular HGB Conc 35 g/dL (31-36); Mean Corpuscular Hemoglobin 30 pg (27-31); Mean Corpuscular Volume 84 fL (80-94); Nucleated Red Blood Cells % 0.1; Platelet Count 199 10^3/uL (150-450); Red Blood Count 4.69 10^6 /uL (4.18-5.48); Red Cell Distribution Width 14 % (10-15); White Blood Count 6.7 10^3/uL (3.5-10.8)
[2022-02-11 05:53] LABS: Calcium 8.8 mg/dL (8.6-10.3); Magnesium 1.8 mg/dL (1.9-2.7); Potassium 3.8 mmol/L (3.5-5.0); eGFR CKD-EPI 85.3 (>60)
[2022-02-11] MEDS ORDERED: Magnesium Sulfate IV 1GM/100ML 1 GM/100 ML BAG IV ONE (07:15)
[2022-02-11] MEDS: buPROPion SR 100 mg TAB.SR PO SCH (08:48)
[2022-02-11] MEDS: PRIVIGEN IV SCH (17:49)
[2022-02-11] MEDS: [UNRECOGNIZED DRUG - OTHER] IV SCH (17:49)
[2022-02-11] MEDS: IMMUNE GLOB IV SCH (17:49)
[2022-02-12 06:20] LABS: Hematocrit 40 % (42-52); Mean Corpuscular HGB Conc 35 g/dL (31-36); Mean Corpuscular Hemoglobin 29 pg (27-31); Mean Corpuscular Volume 83 fL (80-94); Mean Platelet Volume 8.8 fL (7.4-10.4); Platelet Count 200 10^3/uL (150-450); Red Blood Count 4.77 10^6 /uL (4.18-5.48); Red Cell Distribution Width 14 % (10-15); White Blood Count 4.9 10^3/uL (3.5-10.8)
[2022-02-12 06:48] LABS: Calcium 8.8 mg/dL (8.6-10.3); Magnesium 1.9 mg/dL (1.9-2.7); Potassium 3.8 mmol/L (3.5-5.0); eGFR CKD-EPI 92.4 (>60)
[2022-02-12] MEDS: buPROPion SR 100 mg TAB.SR PO SCH (08:43)
[2022-02-12 13:48] VITALS: BP 148/96
[2022-02-20 18:13] LABS: AGNA-1, CSF Negative titer (<1:2); Amphiphysin Ab, CSF Negative titer (<1:2); CRMP-5-IgG, CSF Negative titer (<1:2); PCA-1, CSF Negative titer (<1:2); PCA-2, CSF Negative titer (<1:2); PCA-Tr, CSF Negative titer (<1:2)
[2022-02-22 05:58] LABS: Anti-Glial/Neuronal Nuc Ab-1 A Negative titer (<1:240); Anti-Neuronal Nuclear Ab Type1 Negative titer (<1:240); Anti-Neuronal Nuclear Ab Type2 Negative titer (<1:240); Anti-Neuronal Nuclear Ab Type3 Negative titer (<1:240); CRMP-5 IgG Antibody Negative titer (<1:240); Calcium Channel Binding Ab P/Q 0.04 nmol/L (<=0.02); Purkinje Cell Cytoplasm Typ Tr Negative titer (<1:240); Purkinje Cell Cytoplasm Type 1 Negative titer (<1:240); Purkinje Cell Cytoplasm Type 2 Negative titer (<1:240)
== END 2022-02-12 13:10 | disposition home or self-care (01) | DRG 49 ==
LOC: MEDTELE → SUATTDRO 02-10 15:30
PROVIDERS: ADMIT Internal Medicine; ATTEND Internal Medicine